=== PATIENT | female | born 1940 | race African-American/Black ===

== ENCOUNTER 2019-10-03 14:51 | Emergency (ER) | payer BC, OTHER ==
[~2019-10-03] VITALS: Ht 157.5 cm; Wt 77.0 kg
[2019-10-03 15:14] VITALS: BP 123/83
[2019-10-03] MEDS ORDERED: TRAMADOL 50MG TABLET PO ONE (16:45)
[2019-10-03] MEDS ORDERED: CEPHALEXIN 250MG CAPSULE PO ONE (16:45)
[2019-10-03] MEDS ORDERED: TETANUS, DIPHTHERIA, PERTUSSIS VAC/PF 0.5ML (>7YR OLD) IM ONE (16:45)
== END 2019-10-03 18:49 | disposition home or self-care (01) ==
LOC: ER 14:51 → EDBD 14:51 → ER 18:49
DX: S80.211A Abrasion, right knee, initial encounter (principal); I10 Essential (primary) hypertension; E03.9 Hypothyroidism, unspecified; W01.0XXA Fall on same level from slipping, tripping and stumbling without subsequent striking against object, initial encounter; Y93.9 Activity, unspecified; Y92.9 Unspecified place or not applicable
CPT/HCPCS: 73562; 73590; 90471; 90715; 99283

== ENCOUNTER 2019-10-06 11:10 | Emergency (ER) | payer BC ==
[~2019-10-06] VITALS: Ht 157.5 cm; Wt 77.0 kg
[2019-10-06 11:51] VITALS: BP 148/94
[2019-10-06] MEDS ORDERED: TRAM50TA3 PO (11:57)
[2019-10-06] MEDS ORDERED: CEPH500C2 PO (11:57)
== END 2019-10-06 15:19 | disposition home or self-care (01) ==
LOC: ER 11:19
DX: S81.011A Laceration without foreign body, right knee, initial encounter (principal); W18.30XA Fall on same level, unspecified, initial encounter; Y93.89 Activity, other specified; Y92.89 Other specified places as the place of occurrence of the external cause; Y99.8 Other external cause status
CPT/HCPCS: 99283